=== PATIENT | male | born 1955 | race Caucasian/White ===

== ENCOUNTER 2017-06-23 14:25 | Emergency (ER) | payer BC ==
[2017-06-23] MEDS: IPRATRPIUM/ALBUTEROL 0.5/2.5MG 3 ML NEBU. NEB (15:19)
== END 2017-06-23 15:50 | disposition home or self-care (01) ==
LOC: ER 14:25
DX: J40 Bronchitis, not specified as acute or chronic (principal)
CPT/HCPCS: 71046; 94640; 99284-25; J7620